=== PATIENT | female | born 1990 | race Caucasian/White ===

== ENCOUNTER → 2018-06-21 | Outpatient (CLI) | payer BC ==
[2018-06-21 12:27] LABS: Albumin 4.2 g/dL (3.5-5.0); Bilirubin, Delta 0.2 mg/dL (0.0-0.2); Bilirubin,Unconjugated 1.4 mg/dL (0.0-1.1); Total Bilirubin 1.6 mg/dL (0.2-1.3); Total Protein 6.8 g/dL (6.3-8.2)
== END | disposition home or self-care (01) ==
LOC: LABWHC1 11:26
PROVIDERS: ATTEND Internal Medicine Gastroenterology
DX: R79.9 Abnormal finding of blood chemistry, unspecified (principal)
CPT/HCPCS: 36415; 80076

== ENCOUNTER 2019-04-17 10:09 | Inpatient (IN) | payer BC ==
[2019-04-17] MEDS ORDERED: CITRIC ACID-SODIUM CITRATE 15 ML CUP PO ONE (10:31)
[2019-04-17] MEDS ORDERED: ceFAZolin IN SWFI 2 GM/20 ML SYRINGE IVP ONE (10:31)
[2019-04-17] MEDS ORDERED: LACTATED RINGERS 1,000 ML IV ONE (10:31)
[2019-04-17 10:40] VITALS: BMI 46.5
[2019-04-17 11:03] LABS: Glucose,Whole Blood 92 mg/dL (75-99)
[2019-04-17 11:10] LABS: Basophils % (A) 0 %; Eosinophils # (A) 0.1 k/uL (0-0.7); Eosinophils % (A) 2 %; HCT 33.7 % (34.0-46.0); HGB 11.2 gm/dL (11.4-16.0); Hypochromasia Slight; Lymphocytes # (A) 2.1 k/uL (1.0-4.8); Lymphocytes % (A) 29 %; MCH 25.7 pg (25.0-35.0); MCHC 33.1 g/dL (31.0-37.0); MCV 77.6 fL (80.0-100.0); Mean Platelet Volume 9.1; Monocytes # (A) 0.4 k/uL (0-1.0); Monocytes % (A) 5 %; Neutrophils # (A) 4.3 k/uL (1.3-7.7); Neutrophils % (A) 61 %; Platelet Count 174 k/uL (150-450); Poikilocytosis Slight; RBC 4.35 m/uL (3.80-5.40)
[2019-04-17] MEDS ORDERED: KETOROLAC 30 MG/ML 1 ML VIAL ONE (12:20)
[2019-04-17] MEDS ORDERED: DEXAMETHASONE SOD PHOS (MDV) 100 MG/10 ML VIAL ONE (12:20)
[2019-04-17] MEDS ORDERED: NALBUPHINE 10 MG/ML (1 ML AMP) ONE (12:20)
[2019-04-17] MEDS ORDERED: MORPHINE SULFATE (PF) 0.3 MG/0.3 ML SYR ONE (12:20)
[2019-04-17] MEDS ORDERED: OXYTOCIN 10 UNIT/ML 1 ML VIAL ONE (12:20)
[2019-04-17] MEDS ORDERED: ONDANSETRON 4 MG/2 ML VIAL ONE (12:20)
[2019-04-17] MEDS ORDERED: ePHEDrine SULFATE/0.9% NACL/PF 50 MG/5 ML SYRINGE IV ONE (12:20)
[2019-04-17] MEDS ORDERED: ACETAMINOPHEN TAB 325 MG TAB PO PRN (13:26)
[2019-04-17] MEDS ORDERED: NALOXONE 0.4 MG/ML 1 ML VIAL IV PRN (13:26)
[2019-04-17] MEDS ORDERED: ONDANSETRON 4 MG/2 ML VIAL IVP PRN (13:26)
[2019-04-17] MEDS ORDERED: diphenhydrAMINE 25 MG CAP PO PRN (13:26)
[2019-04-17] MEDS ORDERED: METOCLOPRAMIDE 5 MG/ML 2 ML VIAL IVP PRN (13:26)
[2019-04-17] MEDS ORDERED: SIMETHICONE 80 MG CHEWABLE PO PRN (13:26)
[2019-04-17] MEDS ORDERED: diphenhydrAMINE 50 MG/ML 1 ML VIAL IVP PRN ×2 (13:26)
[2019-04-17] MEDS ORDERED: KETOROLAC 30 MG/ML 1 ML VIAL IVP PRN (13:26)
[2019-04-17] MEDS ORDERED: diphenhydrAMINE 50 MG CAP PO PRN (13:26)
[2019-04-17] MEDS ORDERED: ZOLPIDEM 5 MG TAB PO PRN (13:26)
[2019-04-17] MEDS ORDERED: LANOLIN CREAM 5 GM TUBE TOPICAL PRN (13:26)
[2019-04-17] MEDS ORDERED: OXYTOCIN 20 UNITS/1000 ML NS 1,000 ML IV SCH (13:30)
--- NOTE | 2019-04-17 13:31 | P.HPOB ---
History of Present Illness H&P Date: 04/17/19 Chief Complaint: 39+ weeks, previous section, requesting repeat The patient is a 29-year-old 2 para 1001 admitted at 39 and one sevenths weeks as established by last menstrual period and confirmed by a week ultrasound. She is admitted for repeat low transverse section having previously undergone a for arrest of dilation and descent. She also was found to be Rh- and received RhoGAM at 28 weeks. She was diagnosed with gestational diabetes during the and blood sugars throughout the have been well controlled with diet alone. Group B strep status is negative. Obstetrical history: 2 para 1001 with 1 term delivery without complications. Current statistics are listed in history present illness. EDC of 04/23/2019 was established by last menstrual period and confirmed by an 8 week ultrasound. Laboratory workup demonstrates a blood type of O- with a negative antibody screen. Rubella status is immune. The remainder of the laboratory workup was within normal limits. Early Glucola was normal. Second trimester Glucola was elevated and followed by an abnormal 3 hour glucose tolerance test making the diagnosis of gestational diabetes. Group B strep status is negative. Gynecologic history: Unremarkable with no history of any infections to include STDs. Review of Systems Review of systems is confined to history of present illness. Past Medical History Past Medical History: Mitral Valve Prolapse (MVP) Additional Past Medical History / Comment(s): gestational diabetes -03/01 History of Any Multi-Drug Resistant Organisms: MRSA Date of last positivie culture/infection: 2013 MDRO Source:: right thigh Past Surgical History: Adenoidectomy, Section, Cholecystectomy, Tonsillectomy Past Anesthesia/Blood Transfusion Reactions: No Reported Reaction Past Psychological History: No Psychological Hx Reported Smoking Status: Never smoker Past Alcohol Use History: None Reported Past Drug Use History: None Reported - Past Family History Father Family Medical History: Cancer, Coronary Artery Disease (CAD), Diabetes Mellitus Medications and Allergies Home Medications Medication Instructions Recorded Confirmed Type Pnv,Calcium 72/Iron/Folic Acid 1 tab PO DAILY 02/26/19 04/17/19 History [ Plus Tablet] Allergies Allergy/AdvReac Type Severity Reaction Status Date / Time No Known Allergies Allergy Verified 02/26/19 15:24 Exam Vital Signs Temp Pulse Resp BP Pulse Ox 04/17/19 10:33 97.4 F L 89 18 125/84 99 Intake and Output 06/04/19 06/05/19 06/05/19 22:59 06:59 14:59 Other: Weight 127.006 kg In general, this is a well-developed, moderately obese white female in no acute distress. Her heart has a regular rhythm and rate without murmur. Her lungs are clear to auscultation bilaterally in all ibrahim. Her abdomen is gravid, nondistended, has normal active bowel sounds, soft, nontender, without any palpable masses aside from uterine fundus. Her extremities without any cyanosis, clubbing, or edema and are nontender to palpation bilaterally. Digital cervical examination is deferred. Results Result Diagrams: 04/17/19 10:46 Abnormal Lab Results - Last 24 Hours (Table) 04/17/19 Range/Units 10:46 Hgb 11.2 L (11.4-16.0) gm/dL Hct 33.7 L (34.0-46.0) % MCV 77.6 L (80.0-100.0) fL RDW 16.0 H (11.5-15.5) % Assessment and Plan (1) Term Current Visit: Yes Status: Acute Code(s): Z34.90 - ENCNTR FOR SUPRVSN OF NORMAL , UNSP, UNSP TRIMESTER SNOMED Code(s): 71173098 (2) Previous section Current Visit: Yes Status: Acute Code(s): Z98.891 - HISTORY OF UTERINE SCAR FROM PREVIOUS SURGERY SNOMED Code(s): 092633598 Plan: The patient is admitted for repeat low transverse section. The risks and, occasions of the procedure have been thoroughly discussed and she has under stood and agreed to proceed.
--- NOTE | 2019-04-17 13:37 | P.OP ---
Date of Procedure: 04/17/19 Preoperative Diagnosis: #1. 39 and one sevenths weeks, previous section #2. Gestational diabetes #3. Rh- Postoperative Diagnosis: Same Procedure(s) Performed: #1. Repeat low transverse section Anesthesia: spinal Surgeon: Alonso Murray Stock Drier Tender #1: Samantha Moctezuma Estimated Blood Loss (ml): 650 IV fluids (ml): 800 Urine output (ml): 120 Pathology: none sent Condition: stable Disposition: floor Operative Findings: The patient was taken to the operating room where she was delivered of a viable 8 lbs. 15 oz. baby boy with Apgars of 8 at 1 minute and 9 at 5 minutes delivered in the right occiput anterior position. There was a nuchal cord 1 which was reduced after delivery of the head. The placenta was delivered manually, intact, and grossly normal with a grossly normal three-vessel cord. cord blood was collected for evaluation for the necessity of RhoGAM. The uterus, tubes, and ovaries were entirely normal to inspection. There was a moderate amount of scarring from the skin to entry into the abdominal cavity. Description of Procedure: The patient was prepped and draped in usual fashion after spinal anesthesia was administered by the anesthesiologist. A Pfannenstiel incision was made through pre-existing scar and extended into the abdominal cavity with minimal difficulty, mostly encountered at the level of the fascia and muscles. A Janey self-retaining retractor was placed and the bladder noted to be scarred relatively high. As result, it was elevated, incised, and reflected distally. A 2 cm incision was made and the transverse plane of the lower uterine segment to enter the uterus at which time clear fluid was noted. Incision was extended in both directions using the bandage scissors. The head was delivered up and through the opening where the nose and mouth were thoroughly suctioned. A nuchal cord 1 was noted and reduced at that time. The remainder of the infant was delivered onto the field where the cord was doubly clamped, cut, and the passed resuscitative measures with weight and Apgars as noted above. cord blood was collected for evaluation of RhoGAM. A segment of cord was doubly clamped, cut, and set aside should cord gases become necessary. The placenta was delivered manually and intact as noted above. The uterus was exteriorized and the interior cavity of the uterus swept of any remaining placental or membranous fragments. The margins of the uterine incision were grasped with Valenzuela clamps and the incision closed in 2 layers. The first layer was a running locking stitch of 0 chromic catgut followed by a running imbricating stitch of 0 chromic catgut, each from margin to margin. Posterior cul-de-sac was then suctioned using a guard. The uterine and ovarian findings were normal as noted above. Uterus was replaced within the abdominal cavity and, upon further examination, a site of bleeding noted just left of midline which was made hemostatic with a [id number] stitch of 0 chromic catgut. Careful examination of the field demonstrated excellent hemostasis. The parietal peritoneum was loosely reapproximated and layer of muscles examined and made hemostatic with the Bovie. The fascia was closed with 2 running stitches of 0 Vicryl proceeding from the lateral margins to the midpoint. The subcutaneous tissues were irrigated, made hemostatic with the Bovie, and reapproximated with a running stitch of 30 plain catgut. The skin was reapproximated with a running subcuticular stitch of 4-0 Vicryl from margin to margin followed by half-inch Steri-Strips placed with Mastisol. Estimated blood loss for the case was approximately 650 mL. There were no complications. All sponge, instrument, and needle counts were correct. The patient tolerated the procedure well and proceeded to recovery room in stable condition. Both mother and are resting comfortably in recovery.
[2019-04-17] MEDS: LACTATED RINGERS 1,000 ML IV SCH (13:49)
[2019-04-17 17:06] LABS: Hemoglobin A1C 5.7 % (4.0-6.0)
[2019-04-17] MEDS: SENNOSIDES-DOCUSATE SODIUM 1 EACH TAB PO SCH (22:03)
[2019-04-18] MEDS: IBUPROFEN 600 MG TAB PO PRN ×3 (02:19→21:51)
[2019-04-18] MEDS ORDERED: Rhogam IMMUNE GLOBULIN 1,500 UNIT/1 ML IM ONE (04:44)
[2019-04-18 07:45] LABS: Basophils % (A) 0 %; Eosinophils # (A) 0.1 k/uL (0-0.7); Eosinophils % (A) 1 %; HCT 28.4 % (34.0-46.0); Hypochromasia Slight; Lymphocytes # (A) 2.4 k/uL (1.0-4.8); Lymphocytes % (A) 23 %; MCH 25.8 pg (25.0-35.0); MCHC 32.8 g/dL (31.0-37.0); MCV 78.7 fL (80.0-100.0); Mean Platelet Volume 9.5; Monocytes # (A) 0.7 k/uL (0-1.0); Monocytes % (A) 6 %; Neutrophils # (A) 7.1 k/uL (1.3-7.7); Neutrophils % (A) 69 %; Platelet Count 146 k/uL (150-450); Poikilocytosis Slight; RDW 15.6 % (11.5-15.5); WBC 10.3 k/uL (3.8-10.6)
[2019-04-18 08:00] LABS: HGB 9.3 gm/dL (11.4-16.0)
[2019-04-18] MEDS: HYDROcodone/APAP 5-325MG 1 EACH TAB PO PRN ×3 (08:23→18:38)
[2019-04-18] MEDS: SENNOSIDES-DOCUSATE SODIUM 1 EACH TAB PO SCH ×2 (08:25→22:47)
--- NOTE | 2019-04-18 08:40 | P.PNOBGPC ---
Subjective - Subjective Interval history: Nausea following section has resolved entirely, tolerating regular d iet. Patient reports: Reports appetite normal, Reports voiding normally, Reports pain well controlled, Reports ambulating normally : doing well, nursing well Objective - Vital Signs Latest vital signs: Vital Signs Temp Pulse Resp BP Pulse Ox 04/18/19 04:00 98.4 F 88 16 127/76 04/18/19 00:00 98.4 F 86 16 121/76 04/17/19 20:00 98.1 F 88 16 124/72 04/17/19 15:31 96.9 F L 84 18 116/66 98 04/17/19 15:01 90 16 126/66 99 04/17/19 14:31 74 18 108/79 100 04/17/19 14:15 74 16 128/67 99 04/17/19 14:00 78 18 125/72 98 04/17/19 13:45 74 16 98/57 97 04/17/19 13:31 96.2 F L 86 18 103/65 98 04/17/19 10:33 97.4 F L 89 18 125/84 99 Intake and Output 04/17/19 04/18/19 04/18/19 22:59 06:59 14:59 Intake Total 575 600 Output Total 1200 300 Balance -625 300 Intake: Intake, IV Titration 325 Amount Oxytocin 20 Units/1000 ml 325 Ns 1,000 ml @ Per Protocol IV .Q0M [facility] Rx#: [id number] Oral 250 600 Output: Urine 1200 300 Uretheral ([place]) 1000 - Exam Extremities: Present: normal Abdomen: Present: normal appearance, soft. Absent: distention, tenderness Incision: Present: normal, dry, intact Uterus: Present: normal, firm (The uterine fundus is tonic and nontender just below the umbilicus.) - Labs Labs: Abnormal Lab Results - Last 24 Hours (Table) 04/17/19 04/18/19 Range/Units 10:46 06:25 RBC 3.60 L (3.80-5.40) m/uL Hgb 11.2 L 9.3 L D (11.4-16.0) gm/dL Hct 33.7 L 28.4 L (34.0-46.0) % MCV 77.6 L 78.7 L (80.0-100.0) fL RDW 16.0 H 15.6 H (11.5-15.5) % Plt Count 146 L (150-450) k/uL Assessment and Plan (1) Term Current Visit: Yes Status: Acute Code(s): Z34.90 - ENCNTR FOR SUPRVSN OF NORMAL , UNSP, UNSP TRIMESTER SNOMED Code(s): 18789312 (2) Previous section Current Visit: Yes Status: Acute Code(s): Z98.891 - HISTORY OF UTERINE SCAR FROM PREVIOUS SURGERY SNOMED Code(s): 569980901 (3) S/P section Current Visit: Yes Status: Acute Code(s): Z98.891 - HISTORY OF UTERINE SCAR FROM PREVIOUS SURGERY SNOMED Code(s): 163496328 Plan: Continue routine postoperative and care. Possible discharge home tomorrow pending no complications. There has been some difficulty with controlling or maintaining the 's blood sugars. I have strongly encouraged the patient ambulating the halls at least 4 times daily.
[2019-04-18] MEDS: LACTATED RINGERS 1,000 ML IV SCH (22:46)
[2019-04-19] MEDS: HYDROcodone/APAP 7.5-325MG 1 EACH TAB PO PRN ×2 (02:31→10:19)
[2019-04-19] MEDS: IBUPROFEN 600 MG TAB PO PRN ×2 (08:07→17:38)
[2019-04-19] MEDS: SENNOSIDES-DOCUSATE SODIUM 1 EACH TAB PO SCH ×2 (08:08→20:14)
--- NOTE | 2019-04-19 10:11 | P.DS ---
Providers Date of admission: 04/17/19 10:09 Expected date of discharge: 04/19/19 Attending physician: Alonso Murray Primary care physician: Stated None - Discharge Diagnosis(es) (1) Term Current Visit: Yes Status: Acute (2) Previous section Current Visit: Yes Status: Acute (3) S/P section Current Visit: Yes Status: Acute Hospital Course: The patient is a 29-year-old 2 para 1001 admitted at 39 and one sevenths weeks by good dating parameters perches admitted for repeat low transverse section having undergone a previous. She is known to be Rh- and received RhoGAM at 28 weeks. She is additionally diagnosed with gestational diabetes for which her blood sugars were controlled well with diet alone and testing was reassuring throughout. Group B strep status is negative. She was taken the operating room where she was delivered of a viable 8 lbs. 15 oz. baby boy with Apgars of 8 at 1 minute and 9 at 5 minutes. The patient's postoperative course was essentially unremarkable with vital signs being stable and her temperature was afebrile throughout. She was presenting with a headache on postoperative day #2 which is unclear as to whether it may be spinal in nature. Anesthesia may evaluate. She otherwise was tolerating regular diet by the morning of postoperative day #1 and was deemed stable for discharge on postoperative day #2. She was discharged home to follow-up in the office in 2 weeks for an incision check and 6 weeks routinely. Discharge instructions included calling for any significantly increased bleeding or foul-smelling lochia, significantly increased fever abdominal pain, perineal complaints, breast complaints, incisional complaints, or anything else that concerned her. She was additionally instructed to have nothing in the vagina for at least 6 weeks time to include intercourse and to abstain from any heavy lifting over the same period of time. She was lastly instructed to do no driving until off of all pain medications or 2 weeks' time, whichever came first. She understood her instructions and agrees to follow up as noted above. Discharge medications included a prescription for [place] 5/325 mg, 1-2 by mouth every 6 hours when necessary pain, #20 dispensed with no refills. She was otherwise to use [id number] analgesic pain medications as needed. She additionally was to continue with vitamins as she has opted to breast-feed. Maternal blood type is O- and cord blood was sent and evaluated for the necessity of RhoGAM prior to discharge. Rubella status is immune. Discharge hemoglobin and hematocrit were 9.3 and 28.4 respectively. As result she was encouraged to take iron sulfate once daily for the next month to rebuild her hemoglobin. Procedures: #1. Repeat low transverse section Patient Condition at Discharge: Stable Plan - Discharge Summary New Discharge Prescriptions: No Action Pnv,Calcium 72/Iron/Folic Acid [ Plus Tablet] 1 tab PO DAILY Discharge Medication List Pnv,Calcium 72/Iron/Folic Acid [ Plus Tablet] 1 tab PO DAILY 02/26/19 [History] Follow up Appointment(s)/Referral(s): Alonso Murray MD [STAFF PHYSICIAN] - 2 Weeks Discharge Disposition: HOME SELF-CARE
[2019-04-19] MEDS: LACTATED RINGERS 1,000 ML IV SCH ×3 (15:00→18:55)
[2019-04-19] MEDS: HYDROcodone/APAP 5-325MG 1 EACH TAB PO PRN (23:08)
[2019-04-20] MEDS: IBUPROFEN 600 MG TAB PO PRN ×2 (02:54→14:50)
[2019-04-20] MEDS: SENNOSIDES-DOCUSATE SODIUM 1 EACH TAB PO SCH (08:00)
--- NOTE | 2019-04-20 10:47 | P.ANPRN ---
Procedure Note - Anesthesia - Nerve Block Performed Other (see comment) Single Time Out Performed: Yes Date of Procedure: 04/19/19 Procedure Start Time: 20:40 Procedure Stop Time: 20:55 Location of Patient Procedure: OB Indication: Analgesia, Dx/Pain Location Sedation Type: Awake Preparation: Sterile Prep Position: Sitting Catheter: None Needle Types: Rock Content Needle Gauge: 18 Injectate: Other (see comment) Narrative: Epidural blood patch performed in a sterile fashion, Indication of procedure was 1 day c/o headache, shoulder pain, and neck rigidity worse in the sitting pos ition. 20 ml of autologous blood removed from right AC fossa and infilitrated into epidural space. Patient reported relief at 16ml and a total of 20 ml total where placed. procedure tolerated well without any complications Blood Aspirated: No Pain Paresthesia on Injection Noted: No Resistance on Injection: Normal Events: Other (see comment) (will follow up in 12-24 hrs for continued resolution of symtoms)
[2019-04-20] MEDS: HYDROcodone/APAP 7.5-325MG 1 EACH TAB PO PRN ×2 (10:48→19:55)
--- NOTE | 2019-04-20 11:11 | P.PN ---
Subjective Progress Note Date: 04/20/19 Principal diagnosis: Postop day 3 status post repeat low transverse section Patient was initially planned to be discharged yesterday morning however discharge was held secondary to development of a spinal headache as well as ongoing assessment of the for jaundice in the special care nursery. The patient began with complaints of a severe headache mainly in the occipital area that was excruciating when sitting up or standing however completely resolved with lying down. This consistent with a spinal headache. Throughout the course of the day she received 3 L of IV fluids in order to attempt to alleviate the headache. This was not successful. Eventually she did receive a blood patch at approximately 11 PM. She reports immediate resolution of her symptoms and continues to feel well this morning. She is complaining of significant and painful lower extremity swelling. She denies shortness of breath. Objective - Vital Signs Vital signs: Vital Signs Temp 97.8 F 04/20/19 04:29 Pulse 72 04/20/19 04:29 Resp 16 04/20/19 04:29 BP 114/69 04/20/19 04:29 Pulse Ox 100 04/20/19 04:29 Intake & Output 04/19/19 04/20/19 04/20/19 18:59 06:59 18:59 Weight 126.688 kg - Exam Cu[place] 3+ bilateral lower extremity edema extending to above the knee. Symmetric. No erythema. - Constitutional General appearance: Present: average body habitus - Respiratory Respiratory: bilateral: CTA - Cardiovascular Rhythm: regular - Gastrointestinal General gastrointestinal: Absent: tenderness - Labs CBC & Chem 7: 04/18/19 06:25 Assessment and Plan (1) Spinal headache complicating labor and delivery, delivered, Current Visit: Yes Status: Acute Code(s): O74.5 - SPINAL AND EPIDUR ANESTHESIA-INDUCED HDACHE DUR LABR AND DEL SNOMED Code(s): 278330632 (2) Gestational diabetes Current Visit: Yes Status: Acute Code(s): O24.419 - GESTATIONAL DIABETES MELLITUS IN , UNSP CONTROL SNOMED Code(s): 61808724 (3) Nuchal cord, delivered, current hospitalization Current Visit: Yes Status: Acute Code(s): O69.81X0 - LABOR AND DEL COMP BY CORD AROUND NECK, W/O COMPRSN, UNSP SNOMED Code(s): 552519430 (4) Previous section Current Visit: Yes Status: Acute Code(s): Z98.891 - HISTORY OF UTERINE SCAR FROM PREVIOUS SURGERY SNOMED Code(s): 203356705 (5) Rh negative status during Current Visit: Yes Status: Acute Code(s): O26.899 - OTH RELATED CONDITIONS, UNSPECIFIED TRIMESTER; Z67.91 - UNSPECIFIED BLOOD TYPE, RH NEGATIVE SNOMED Code(s): 410372952 (6) S/P section Current Visit: Yes Status: Acute Code(s): Z98.891 - HISTORY OF UTERINE SCAR FROM PREVIOUS SURGERY SNOMED Code(s): 627850209 (7) Term Current Visit: Yes Status: Acute Code(s): Z34.90 - ENCNTR FOR SUPRVSN OF NORMAL , UNSP, UNSP TRIMESTER SNOMED Code(s): 85011902 Plan: Postop day 3 status post repeat low transverse section, spinal headache on postop day 2, resolved with blood patch procedure. Patient received significant IV fluid rehydration and has some lower extremity edema. No evidence of pulmonary edema. Recommend ambulation and compression. She is stable for discharge home as had been previously ordered. Medications, postop plan and follow-up as previously ordered.
[2019-04-20] MEDS ORDERED: FUROSEMIDE 20 MG TAB PO STA (11:21)
[2019-04-21] MEDS: IBUPROFEN 600 MG TAB PO PRN ×2 (00:18→07:44)
[2019-04-21] MEDS: SENNOSIDES-DOCUSATE SODIUM 1 EACH TAB PO SCH ×2 (00:19→13:03)
[2019-04-21] MEDS: LACTATED RINGERS 1,000 ML IV SCH (02:17)
[2019-04-21 07:59] VITALS: BP 120/68; PULSE 79; RESP 16; TEMP 98.2
--- NOTE | 2019-04-21 10:50 | P.PN ---
Progress Note - Text Progress Note Date: 04/21/19 Patient's discharge was again held on 04/20/2019 secondary to the with ongoing elevated bilirubin levels. Patient received still complains of the significant bilateral lower extremity edema. She is ambulating and voiding without difficulty. She denies shortness of breath or chest pain at rest however does have some shortness of breath when she is ambulating in the hallways. Her vital signs have been stable with O2 saturations greater than 90% at all times. Her incision appears to be well healing and a believe that she is stable for discharge home.
== END 2019-04-21 13:45 | disposition home or self-care (01) | DRG 788 ==
LOC: 4FBP 10:09
PROVIDERS: ADMIT Obstetrics & Gynecology; ATTEND Obstetrics & Gynecology
PROC: 10D00Z1 Extraction of Products of Conception, Low, Open Approach (ICD-10-PCS; principal; 2019-04-17 12:35)
PROC: 3E0R3GC Introduction of Other Therapeutic Substance into Spinal Canal, Percutaneous Approach (ICD-10-PCS; 2019-04-20)
DX: O34.211 Maternal care for low transverse scar from previous cesarean delivery (principal); G97.1 Other reaction to spinal and lumbar puncture; Y84.4 Aspiration of fluid as the cause of abnormal reaction of the patient, or of later complication, without mention of misadventure at the time of the procedure; O69.81X0 Labor and delivery complicated by cord around neck, without compression, not applicable or unspecified; Z37.0 Single live birth; Z3A.39 39 weeks gestation of pregnancy; Z82.49 Family history of ischemic heart disease and other diseases of the circulatory system; Z83.3 Family history of diabetes mellitus; Z67.91 Unspecified blood type, Rh negative; O26.893 Other specified pregnancy related conditions, third trimester; O24.420 Gestational diabetes mellitus in childbirth, diet controlled
CPT/HCPCS: 83036; 85025; 85461; 86850; 86900; 86901